=== PATIENT | female | born 1975 | race Caucasian/White ===

== ENCOUNTER 2016-12-03 07:30 | Inpatient (IN) | payer OTHER ==
[~2016-12-03] VITALS: Ht 167.6 cm; Wt 80.0 kg
[~2016-12-03 07:30] MED LIST: FOLI0.4T2 PO; OXYTOCIN 30 UNITS/LR 500 ML BAG IV ONE; PREN1TAB49 BC
[2016-12-03 17:50] VITALS: Ht 167.6 cm; Wt 80.0 kg
[2016-12-03] MEDS ORDERED: CARBOPROST 250 MCG INJ IM PRN (18:00)
[2016-12-03] MEDS ORDERED: MISOPROSTOL 200 MCG TAB PR PRN (18:00)
[2016-12-03] MEDS ORDERED: OXYTOCIN 30 UNITS/LR 500 ML IV PRN (18:00)
[2016-12-03] MEDS ORDERED: METHYLERGONOVINE 0.2 MG INJ IM PRN (18:00)
[2016-12-03 18:18] LABS: ADD SCAN DIFF NO
[2016-12-03 18:21] LABS: BASOPHILS % 0.1 % (0.0-2.0); EOSINOPHILS % 0.3 % (0.0-7.0); HEMATOCRIT 34.7 % (37.0-47.0); HEMOGLOBIN 11.7 g/dl (12.0-16.0); LYMPHOCYTES # 0.8 10^3/ul (0.8-2.9); LYMPHOCYTES % 10.8 % (15.0-51.0); MEAN CORPUSCULAR HEMOGLOBIN 33.7 pg (29.0-33.0); MEAN CORPUSCULAR HGB CONC 33.7 g/dl (32.0-37.0); MEAN PLATELET VOLUME 9.6 fl (7.4-10.4); MONOCYTE # 0.6 10^3/ul (0.3-0.9); MONOCYTES % 7.6 % (0.0-11.0); NEUTROPHIL # 6.1 10^3/ul (1.6-7.5); NEUTROPHILS % 80.8 % (39.0-77.0); PLATELET COUNT 191 10^3/UL (140-415); RED BLOOD COUNT 3.47 10^6/ul (4.20-5.40); WHITE BLOOD COUNT 7.5 10^3/ul (4.8-10.8)
[2016-12-03 18:31] LABS: INR 0.93; PROTIME 12.5 Sec (12.2-14.2)
[2016-12-03 18:32] LABS: PARTIAL THROMBOPLASTIN TIME 26.9 Sec (25.0-35.0)
[2016-12-03] MEDS: LACTATED RINGER'S 1,000 ML IV SCH ×2 (18:50→19:40)
[2016-12-03] MEDS ORDERED: OXYTOCIN 30 UNITS/LR 500 ML IV SCH (20:00)
[2016-12-03] MEDS ORDERED: CEFAZOLIN 2 GM/50 ML (PMX) 50 ML IV SCH (20:00)
[2016-12-03] MEDS ORDERED: morphine SULFATE/PF (10 MG/10 ML) INJ ONE (21:06)
[2016-12-03] MEDS ORDERED: ONDANSETRON 4 MG INJ ONE (21:06)
[2016-12-03] MEDS ORDERED: OXYTOCIN 10 UNIT INJ ONE (21:06)
[2016-12-03] MEDS ORDERED: PHENYLephrine (100 MCG/ML) 5ML SYG ONE (21:07)
--- NOTE | 2016-12-03 22:57 | HP ---
Date/Time of Note Date/Time of Note DATE: 12/03/16 TIME: 22:47 OB - History Hx of Present Free Text/Dictation 41 Year-old with previous delivery and SIUP at 39 weeks admitted for repeat delivery. She also desires for permanent sterilization. She has been receiving her care with [facility]Dr. English. She states good movement. She denies nausea, vomiting, shortness of breath, chest pain, and abdominal pain between contractions, headache, visual changes, Estimated Due Date: Dec 10, 2016 : 2 Para: 1 Spontaneous : 0 Therapeutic : 0 Care: Good Care Ultrasounds: Normal mid trimester US Medical Complications: None Past Family/Social History * Past Medical, Surgical, Family and Obstetric Histories reviewed from chart. Blood Type: O- Rubella: immune RPR/VDRL: Negative GBS Status: Unknown HBsAG: Negative OB Admission Exam Physical Exam HEENT: WNL Heart: Rhythm Normal Lungs: Clear, Equal Abdomen: WNL Extremities: Normal Reflexes: Normal Cervical Dilatation: None Effacement: 0% Station: -3 Heart Rate: 140's Accelerations: Accelerations Present Decelerations: No Decelerations Varibility: Moderate Last 72 hours Lab Results CBC & BMP 12/03/16 18:00 OB Assessment/Plan Other plan: 41 Year-old with previous delivery and SIUP at 39 weeks admitted for repeat delivery - FHR: No sign of metabolic acidosis- Category I - Continious EFM, toco - CBC, blood type and screen - Analgesia options with R/B/A discussed in detail with patient - Epidural per patient request - Please see the orders - O neg/Rubella: Immune 2) Desire for sterilization: - R/B/A/FR, permanent sterilization discussed in detail with patient. She expressed understanding and would like to proceed with BTL. She signed the informed consent. The risk of delivery including but not limited to bleeding, infection, injury to other organs (bowel, bladder, ureter, vessels, and nerves), injury to fetus, blood transfusion, blood transfusion related infection, risk of anesthesia, adhesion, needs for future , removal of uterus or any other indicated surgery was discussed with the patient and her family. She expressed understanding. All of her questions were answered. She signed the informed consent PHYSICIAN'S VERIFICATION OF INFORMED CONSENT-Repeat C/S, bilateral tubal ligation The patient was counseled regarding the procedure, its indications, risks, potential complications and alternatives and any questions were answered. Consent was obtained. PLANNED PROCEDURE/TREATMENT: delivery with possible vacuum/forceps delivery PHYSICIAN'S VERIFICATION OF INFORMED CONSENT FOR BLOOD TRANSFUSION There is a reasonable possibility that blood transfusion will be necessary as a result of the patient's procedure. I have discussed the following with the patient/patient's legal parts sales representative: An explanation of the benefits and risks of the transfusion of blood or blood products and the possible alternatives. Al questions have been answered to the patient's/patients legal representatives satisfaction. INFORMED CONSENT: The patient has been informed of: - The nature of the proposed care, treatment, services, medications, interventions or procedures. - Potential benefits, risks or side effects, including potential problems related to recuperation. - The likelihood of achieving care treatment and service goals. - Reasonable alternatives to the proposed care, treatment and service. - The relevant risks, benefits and side effects related to alternatives, including the possible results of not receiving care, treatment and services. - When indicated, any limitations on the confidentiality of information learned from or about the patient. - If appropriate, the risks, benefits and alternatives of the drugs to be used for sedation/analgesia including moderate sedation. - If appropriate, patient has been provided information on the risks, benefits and alternatives to the transfusion of blood and/or blood products. - If appropriate, patient has been provided information regarding the [place] Blood Act. DEBBIE ENGLISH Dec 03, 2016 22:57
--- NOTE | 2016-12-03 23:17 | OPR ---
Operative Report Planned Procedure Free Text/Dictation 41 Year-old with previous delivery and SIUP at 39 weeks admitted for repeat delivery and bilateral tubal ligation However NOT ABLE TO PERFORM BILATERAL TUBAL LIGATION due to extensive adhesion and not able to visualized or palpate the fallopian tubes. Procedure date Dec 03, 2016 Procedure(s) Repeat delivery Performed by: DEBBIE ENGLISH Assisting provider: JACI CONSTANTINO MD Anesthesiologist: LOURDES GAMBOA MD Pre-procedure diagnosis 41 Year-old with previous delivery and SIUP at 39 weeks admitted for repeat delivery and bilateral tubal ligation Anesthesia Type: spinal Procedure Description INDICATION AND HISTORY: 41 Year-old with previous delivery and SIUP at 39 weeks admitted for repeat delivery and bilateral tubal ligation. The risks of delivery including but not limited to bleeding, infection , injury to other organs (bowel, bladder, ureters, vessels, nerves), injury to the , blood transfusion, blood transfusion related infections, removal of uterus, risk of anesthesia, risks with future , repeat , adhesion/hernia formation and R/B/A/FR, permanent sterilization discussed in detail with patient. She expressed understanding and would like to proceed with C/S and BTL. She signed the informed consent. DESCRIPTION OF OPERATION: The patient was taken to the operating room, where she was identified and the procedure was verified. She received spinal anesthesia. The patient was placed in dorsal supine position with the left tilt. The heart rate was 138 per minute. The patient was then prepped and draped in the normal sterile fashion. The Pfannenstiel skin incision was made, and carried down to the fascia with the Bovie. The fascia was incised in the midline, and the fascial incision was carried laterally with the Aguilar scissors. The superior portion of the fascial incision was then grasped with Je clamps, tented up and dissected off the underlying rectus muscle with sharp dissection. The lower portion of the fascial incision was then made in a similar fashion. The rectus muscle was and the peritoneum was entered. The peritoneal incision was then stretched and a bladder blade was inserted. There was severe adhesion of abdominopelvic side wall to the uterus. Then, an incision was made in the lower uterine segment in a transverse fashion with the knife and extended bluntly. The was delivered atraumatically in cephalic presentation, with the above findings. The resuscitation team was present and the baby was handed to them. A cord blood sample was obtained for further evaluation. The placenta and membranes, which appeared normal were removed. As noted above there was severe adhesion of abdominopelvic side wall to the uterus, not able to visualized or palpate the fallopian tubes or ovaries. The uterus was cleared of all clots and debris. The uterus was then closed (not able to exteriorized uterus) in a two layer fashion with 0 Vicryl. At the time of closure, hemostasis was noted. The gutters were irrigated. The peritoneum was reapproximated with 3-0 Vicryl. The muscle was reapproximated with 3-0 Vicryl. The fascia approximated with 0 Vicryl in a running fashion. The subcutaneous closed in two layer with 3/0 vicryl. The skin was closed with 4-0 Monocryl. All instrument, sponge, lap, and needle counts were correct x4. The patient tolerated the procedure well. She was transferred to the recovery room in stable condition. The patient received 2 g Ancef 30 minutes prior to surgery. Post-Procedure Post-procedure diagnosis - 41 Year-old with previous delivery and SIUP at 39 weeks - Severe adhesion of uterus to the sidewall of abdominopelvis, not able to exteriorized the uterus or visualized/ palpate the fallopian tubes and ovaries. - TUBAL LIGATION NOT DONE Findings: Live Baby [male], Apgars [9] and [9], weight [8 lbs 1 oz],[cephalic] presentation [3V]cord. Specimen removed: No Complications: None Pt Condition post procedure: stable Disposition: PACU Post-procedure comments 41 Year-old with previous delivery and SIUP at 39 weeks admitted for repeat delivery and bilateral tubal ligation. However NOT ABLE TO PERFORM BILATERAL TUBAL LIGATION due to extensive adhesion and not able to visualized or palpate the fallopian tubes. Physician Certification I, the undersigned physician, hereby certify that I have discussed the procedure described in this consent form with this patient (or the patient's legal indirect sales representative), including: * The risk and benefits of the procedure; * Any adverse reactions that may reasonably be expected to occur; * Any alternative efficacious methods of treatment which may be medically viable ; * The potential problems that may occur during recuperation; * Potential for blood transfusion and associated risks/benefits; and * Any research or economic interest I may have regarding this treatment. I further certify that the patient/legally responsible person was encouraged to ask question and that all questions were answered. DEBBIE ENGLISH Dec 03, 2016 23:14
[2016-12-03] MEDS ORDERED: KETOROLAC 30 MG INJ IV ONE (23:30)
[2016-12-04] MEDS ORDERED: CARBOPROST 250 MCG INJ IM PRN
[2016-12-04] MEDS ORDERED: OXYTOCIN 30 UNITS/LR 500 ML IV PRN
[2016-12-04] MEDS ORDERED: METHYLERGONOVINE 0.2 MG INJ IM PRN
[2016-12-04] MEDS ORDERED: MISOPROSTOL 200 MCG TAB PR PRN
[2016-12-04] MEDS ORDERED: KETOROLAC 30 MG INJ IV PRN (00:30)
[2016-12-04] MEDS ORDERED: DIPHENHYDRAMINE 50 MG INJ IV PRN (00:30)
[2016-12-04] MEDS ORDERED: morphine 2 MG INJ IV PRN (00:30)
[2016-12-04] MEDS ORDERED: ONDANSETRON 4 MG INJ IV PRN (00:30)
[2016-12-04] MEDS ORDERED: NALOXONE (0.4 MG/ML) INJ IV PRN (00:30)
--- NOTE | 2016-12-04 01:06 | DELSUM ---
Delivery Summary A-C Datetime Report Generated by CPN: 12/04/2016 01:[address] Reporter: [place], Mansi Gena MATERNAL INFORMATION Delivery Anesthesia: Spinal Medications in Delivery: SEE ANESTHESIA RECORD Estimated Blood Loss (ml): 700 Placenta Cultured: No Maternal Complications: None LABOR SUMMARY EDC: 12/10/2016 00:00 No. Babies in Womb: 1 Attempted: No Labor Anesthesia: None LABOR INFORMATION Reason for Induction: Not Applicable Onset of Labor: 12/03/2016 09:30 Oxytocin: N/A Group B Beta Strep: Not Done Antibiotics # of Doses: 1 Antibiotics Time of Last Dose: 12/03/2016 21:21 Steroids Given: None Reason Steroids Not Administered: Not Applicable MEMBRANES Membranes Rupture Method: Artificial Rupture of Membranes: 12/03/2016 21:45 Length of Rupture (hr): 0.02 Amniotic Fluid Color: Clear Amniotic Fluid Amount: Moderate Amniotic Fluid Odor: None STAGES OF LABOR Stage 3 hr: 0 Stage 3 min: 1 Total Time in Labor hr: 12 Total Time in Labor min: 17 CSECTION DELIVERY Primary Indication: Repeat Elective CSection Urgency: Elective CSection Incidence: Repeat Labor: Labor Elective: Elective CSection Incision: Lower Uterine Transverse Other Sterilization Procedure: STERILIZATION NOT DONE DUE TO ADHESIONS BABY A INFORMATION Delivery Date/Time: 12/03/2016 21:46 Method of Delivery: Method of Delivery: Born in Route : No : N/A Forceps: N/A Vacuum Extraction: N/A Shoulder Dystocia : N/A SHOULDER DYSTOCIA BABY A Infant Delivery Date/Time: 12/03/2016 21:46 PRESENTATION/POSITION BABY A Presentation: Cephalic Cephalic Presentation: Vertex Vertex Position: Left Occipital Anterior Breech Presentation: N/A PLACENTA INFORMATION BABY A Placenta Delivery Time : 12/03/2016 21:47 Placenta Method of Delivery: Manual Removal Placenta Status: Delivered SCORES BABY A Heart Rate 1 min: >100 bpm Resp Effort 1 min: Good Cry Reflex Irritability 1 min: Cough/Sneeze/Pulls Away Muscle Tone 1 min: Active Motion Color 1 min: Body [place], Extremit Blue Resuscitation Effort 1 min: Tactile Stimulation SCORE 1 MIN: 9 Heart Rate 5 min: >100 bpm Resp Effort 5 min: Good Cry Reflex Irritability 5 min: Cough/Sneeze/Pulls Away Muscle Tone 5 min: Active Motion Color 5 min: Body [place], Extremit Blue Resuscitation Effort 5 min: Tactile Stimulation SCORE 5 MIN: 9 INFANT INFORMATION BABY A Gestational Age at Delivery: 39.0 Gestational Status: Full Term- 39- 40.6 Weeks Outcome : Liveborn Condition : Stable Infant Sex: Male IDENTIFICATION/MEDS BABY A ID Band Number: [id number] ID Band Location: Right Leg; Left Arm Sensor Applied: Yes Sensor Number: [id number] Sensor Location : Cord Clamp Vitamin K Given : Not Given Erythromycin Given: Not Given WEIGHT/LENGTH BABY A Infant Birthweight (gm): 3655 Infant Weight (lb): 8 Infant Weight (oz): 1 Length (in): 21.25 Length (cm): 53.98 CORD INFORMATION BABY A No. Cord Vessels: 3 Nuchal Cord : N/A Cord Blood Taken: Yes Infant Suction: Mouth; Nose ASSESSMENT BABY A Complications: None Physical Findings at Delivery: Within Normal Limits Respirations: Appears Normal Pneumatic Tester/ALS Called : No Care By: Conrado SERRANO RN Transferred To: Remains with Mother
[2016-12-04 01:20] VITALS: BP 135/76; PULSE 76; RESP 18
[2016-12-04] MEDS: LACTATED RINGER'S 1,000 ML IV SCH ×4 (02:25→23:32)
[2016-12-04 03:50] VITALS: BP 125/74; PULSE 77; RESP 18
[2016-12-04 07:59] LABS: ADD SCAN DIFF NO
[2016-12-04 08:00] VITALS: BP 105/60; PULSE 72; RESP 19
[2016-12-04 08:14] LABS: BASOPHILS % 0.3 % (0.0-2.0); EOSINOPHILS # 0.1 10^3/ul (0.0-0.5); EOSINOPHILS % 0.7 % (0.0-7.0); HEMATOCRIT 24.1 % (37.0-47.0); HEMOGLOBIN 7.8 g/dl (12.0-16.0); LYMPHOCYTES # 0.9 10^3/ul (0.8-2.9); LYMPHOCYTES % 12.3 % (15.0-51.0); MEAN CORPUSCULAR HEMOGLOBIN 32.4 pg (29.0-33.0); MEAN CORPUSCULAR HGB CONC 32.4 g/dl (32.0-37.0); MEAN PLATELET VOLUME 9.8 fl (7.4-10.4); MONOCYTE # 0.7 10^3/ul (0.3-0.9); MONOCYTES % 9.1 % (0.0-11.0); NEUTROPHIL # 5.7 10^3/ul (1.6-7.5); NEUTROPHILS % 77.1 % (39.0-77.0); PLATELET COUNT 151 10^3/UL (140-415); RED BLOOD COUNT 2.41 10^6/ul (4.20-5.40); RED CELL DISTRIBUTION WIDTH 13.9 % (11.5-14.5); WHITE BLOOD COUNT 7.5 10^3/ul (4.8-10.8)
[2016-12-04 12:00] VITALS: BP 113/68; PULSE 73; RESP 18
--- NOTE | 2016-12-04 15:49 | QN ---
Documentation Comment POD#1 is stable afebrile tolerates diet No VB +Flatus +adequate urine VS stable Gen NAD Abd soft NT ND Dressing to be removed Genitalia No blood at perinium --->Ambulation --->Repeat CBC tomorrow AM --->Patient's questions answered SAUL VIEYRA M.D. Dec 04, 2016 15:48
[2016-12-04 16:00] VITALS: BP 104/68; PULSE 76; RESP 19
[2016-12-04] MEDS ORDERED: INFLUENZA VIRUS VACCINE 0.5 ML (DISPENSING) IM* ONE (16:00)
[2016-12-04 20:20] VITALS: BP 93/60; PULSE 79; RESP 18
[2016-12-04] MEDS ORDERED: OXYCODONE/ACETAMINOPHEN (5/325) TAB PO PRN (21:15)
[2016-12-04] MEDS: IBUPROFEN 800 MG TAB PO SCH (22:46)
[2016-12-04] MEDS: OXYCODONE/ACETAMINOPHEN (5/325) TAB PO SCH (23:34)
[2016-12-05 04:00] VITALS: BP 107/63; PULSE 67; RESP 18
[2016-12-05] MEDS: IBUPROFEN 800 MG TAB PO SCH ×3 (06:40→21:59)
[2016-12-05 07:40] VITALS: BP 97/56; PULSE 68; RESP 18
[2016-12-05] MEDS: OXYCODONE/ACETAMINOPHEN (5/325) TAB PO SCH ×3 (07:58→23:45)
[2016-12-05 16:00] VITALS: BP 105/66; PULSE 75; RESP 18
--- NOTE | 2016-12-05 17:04 | QN ---
Documentation Comment POD #2 s/p . No c/o. On a regular diet. + BM. Adequate pain relief. T=98.9 BP 97/56 Incision C/D/I. Lochia minimal. Ext 1-2+ edema. P: D/c tomorrow. DALILA SINGLETON MD Dec 05, 2016 17:04
[2016-12-05 19:50] VITALS: BP 118/73; PULSE 66; RESP 18
[2016-12-05] MEDS: LACTATED RINGER'S 1,000 ML IV SCH ×3 (21:54→23:32)
[2016-12-06 03:45] VITALS: BP 106/53; PULSE 73; RESP 18
[2016-12-06] MEDS: IBUPROFEN 800 MG TAB PO SCH ×2 (05:25→16:55)
[2016-12-06] MEDS: LACTATED RINGER'S 1,000 ML IV SCH (06:10)
[2016-12-06 07:39] VITALS: BP 100/61; PULSE 70; RESP 18
--- NOTE | 2016-12-06 08:48 | PD.PPDC ---
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
--- NOTE | 2016-12-06 08:51 | DS ---
Date/Time of Note Date/Time of Note DATE: 12/06/16 TIME: 08:50 Obstetrical Discharge Record Final Diagnosis Final Diagnosis: Term delivered Section Section: Repeat Complications Augmentation: No Induction: No Condition on Discharge Physical Assessment Last Vitals: T= 98.5 BP 100/61 Voiding: Yes Bowel Movement: Yes Breast: Filling Fundus: Firm Abdomen and Incision: Clean, dry, and intact. Calf Tenderness: No Patient Condition: Good DALILA SINGLETON MD Dec 06, 2016 08:51
[2016-12-06] MEDS ORDERED: INFLUENZA VIRUS VACCINE 0.5 ML (DISPENSING) IM* ONE (09:00)
[2016-12-06] MEDS: OXYCODONE/ACETAMINOPHEN (5/325) TAB PO SCH ×2 (09:03→16:55)
[2016-12-06 16:00] VITALS: BP 110/76; PULSE 68; RESP 18
== END 2016-12-06 17:45 | disposition home or self-care (01) | DRG 766 ==
LOC: L-D 17:31 → PP1 12-04 01:20
PROVIDERS: ADMIT Obstetrics & Gynecology; ATTEND Obstetrics & Gynecology
PROC: 0UN90ZZ Release Uterus, Open Approach (ICD-10-PCS; 2016-12-03)
PROC: 10D00Z1 Extraction of Products of Conception, Low, Open Approach (ICD-10-PCS; principal; 2016-12-03 19:30)
DX: O34.211 Maternal care for low transverse scar from previous cesarean delivery (principal); N73.6 Female pelvic peritoneal adhesions (postinfective); O09.523 Supervision of elderly multigravida, third trimester; O99.89 Other specified diseases and conditions complicating pregnancy, childbirth and the puerperium; Z3A.39 39 weeks gestation of pregnancy; Z37.0 Single live birth
CPT/HCPCS: 85025; 85610; 85730; 86592; 86850; 86870; 86885; 86900; 86901; 90686; 94760; 99464; J0690; J1885; J2274; J2370; J2405; J2590; J2790; J7120